=== PATIENT | male | born 2000 | race Caucasian/White ===

== ENCOUNTER 2024-04-28 18:54 | Emergency (ER) | payer SELFPAY ==
[~2024-04-28] VITALS: Ht 193 cm; Wt 145.1 kg
[2024-04-28] MEDS ORDERED: PENICILLIN V POTASSIUM 500 MG TAB PO ONE (19:15)
[2024-04-28] MEDS ORDERED: Acetaminophen/Hydrocodone 5 MG/325 MG TABLET PO ONE (19:15)
[2024-04-28] MEDS ORDERED: Ondansetron Hydrochloride 4 MG TAB SL ONE (19:15)
[2024-04-28] MEDS ORDERED: PENICILLIN VK500 MG PO (19:17)
== END 2024-04-28 19:31 | disposition home or self-care (01) ==
LOC: ED 18:54
DX: K02.9 Dental caries, unspecified (principal); Z98.890 Other specified postprocedural states